=== PATIENT | male | born 1940 | race Caucasian/White ===

== ENCOUNTER → 2020-12-07 09:19 | Outpatient (CLI) | payer MEDICARE, OTHER, SELFPAY ==
[2020-12-07] MEDS: COVID-19 VACC #1, MRNA(MOD) 100 MCG/0.5 ML VIAL IM (09:28)
== END ==
PROVIDERS: Family Provider Internal Medicine; PCP Internal Medicine; Visit Provider Internal Medicine
DX: Z23 Encounter for immunization (principal)
CPT/HCPCS: 0011A; 91301

== ENCOUNTER → 2021-01-04 09:40 | Outpatient (CLI) | payer MEDICARE, OTHER, SELFPAY ==
[2021-01-04] MEDS: COVID-19 VACC #2, MRNA(MOD) 100 MCG/0.5 ML VIAL IM (09:45)
== END ==
PROVIDERS: Family Provider Internal Medicine; PCP Internal Medicine; Visit Provider Internal Medicine
DX: Z23 Encounter for immunization (principal)
CPT/HCPCS: 0012A; 91301

== ENCOUNTER → 2021-07-09 13:11 | Outpatient (CLI) | payer MEDICARE, OTHER, SELFPAY ==
--- NOTE | 2021-07-09 | DI.CT.S_ITS ---
PROCEDURE: CT LUMBAR SPINE WO CON INDICATIONS: Spinal stenosis, lumbar region with neurogenic claudication TECHNIQUE: Noncontrast 3 mm thick sections acquired from the T12 level to the sacrum. Sagittal and coronal reformats were constructed. For radiation dose reduction, the following was used: automated exposure control. COMPARISON: [facility] [place], [place], XR LUMBAR SPINE WITH OLBIQUES PLUS FLEXION EXTENSION, 06/26/2021, 11:05. FINDINGS: Image quality: Excellent. Bones: There is mild L4-L5 anterolisthesis secondary to facet hypertrophy. There is trace L1-L2, L2-L3 and L3-L4 retrolisthesis. No acute vertebral body compression fractures. No suspicious lytic or blastic bony lesions. No pars defects. T12-L1: Loss of disc height. Vacuum disc phenomenon. Mild, diffuse disc bulge. Central/left central disc protrusion. Mild narrowing of the central canal. No neural foraminal narrowing. No neural compression. L1-L2: Loss of disc height. Vacuum disc phenomenon. Mild, diffuse disc bulge. Mild bilateral facet hypertrophy. Mild narrowing of the central canal. No neural foraminal narrowing. No neural compression. L2-L3: Slight loss of disc height. Mild, diffuse disc bulge. Mild to moderate bilateral facet hypertrophy. Mild ligamentum flavum hypertrophy. Mild to moderate narrowing of the central canal. Mild bilateral neural foraminal narrowing. No neural compression L3-L4: Disc height is normal. Mild, diffuse disc bulge. [id number]-mz-hzqlwuey bilateral facet hypertrophy. Moderate ligamentum flavum hypertrophy. Moderate narrowing of the central canal. Mild to moderate bilateral neural foraminal narrowing. No neural compression. L4-L5: Disc height is normal. Mild, diffuse disc bulge. Moderate bilateral facet hypertrophy. Moderate ligamentum flavum hypertrophy. Severe narrowing of the central canal. Moderate bilateral neural foraminal narrowing. L5-S1: Disc height is normal. Mild, diffuse disc bulge. Mild right and severe left facet hypertrophy. No central stenosis. Mild left neural foraminal narrowing. No neural compression. Soft tissues: No retroperitoneal masses or hematomas. Visualized aorta is normal in caliber. IMPRESSION: 1. Multilevel degenerative disc disease. 2. Grade 1 L4-L5 degenerative spondylolisthesis. 3. Severe L4-L5 central canal narrowing with possible compression of the traversing nerve roots of the cauda equina.. 4. No severe neural foraminal narrowing. 5. No vertebral body compression fracture. Dictated by: Sindi Katz MD, PhD on 07/09/2021 at 14:58 Approved by: Sindi Katz MD, PhD on 07/09/2021 at 15:03
== END ==
PROVIDERS: Family Provider Internal Medicine; PCP Internal Medicine; Referring Provider Physical Medicine & Rehabilitation Pain Medicine; Visit Provider Physical Medicine & Rehabilitation Pain Medicine
DX: M48.062 Spinal stenosis, lumbar region with neurogenic claudication (principal); M51.36 Other intervertebral disc degeneration, lumbar region; M51.37 Other intervertebral disc degeneration, lumbosacral region; M43.16 Spondylolisthesis, lumbar region
CPT/HCPCS: 72131

== ENCOUNTER → 2021-12-31 13:54 | Outpatient (CLI) | payer MEDICARE, OTHER, SELFPAY ==
--- NOTE | 2021-12-31 | DI.RAD.S_ITS ---
PROCEDURE: XR CHEST 2V INDICATIONS: atrial fib, cardiomyopathies, dyspnea TECHNIQUE: 2 views of the chest were acquired. COMPARISON: None. FINDINGS: Surgical changes and devices: A right cardiac device is seen. Lungs and pleura: Lungs are clear. No pleural effusions or pneumothorax. Mediastinum: Enlargement the cardiac silhouette. Retrocardiac density, suggesting hiatal hernia. Tortuous aorta. Bones and chest wall: No suspicious bony abnormalities. Soft tissues appear unremarkable. IMPRESSION: No acute cardiopulmonary abnormality. Dictated by: Neymar Salinas M.D. on 12/31/2021 at 15:42 Approved by: Neymar Salinas M.D. on 12/31/2021 at 15:43
== END ==
PROVIDERS: Family Provider Internal Medicine; PCP Internal Medicine; Referring Provider Internal Medicine Cardiovascular Disease; Visit Provider Internal Medicine Cardiovascular Disease
DX: I48.91 Unspecified atrial fibrillation (principal); I42.8 Other cardiomyopathies; R06.00 Dyspnea, unspecified
CPT/HCPCS: 71046

== ENCOUNTER → 2022-02-17 08:36 | Outpatient (CLI) | payer MEDICARE, OTHER, SELFPAY ==
--- NOTE | 2022-02-18 11:55 | P.PCN_ITS ---
Cardiac Stress Test Report Referral & Results Indication: ORTEGA Rest ECG: V PACED RHYTHM WITH NONSPECIFIC ST CHANGES Procedure Note: LEXISCAN NUCLEAR TEST Impression: AFTER SAVANNAH INJ HAD MINIMAL DYSPNEA; NO CHEST DISCOMFORT; BASELINE ECG; V PACED WITH NONSPECIFIC ST ABNORMALITIES; NO SIGNIFICANT ST CHANGES AFTER SAVANNAH INJ COMPARED TO BASELINE; NO AMINOPH NEEDED. MIBI SCAN PENDING; CAREER DEVELOPMENT ASSOCIATE TO REVIEW; YAJAIRA HUTSON Please note: Actual ECG tracings can be found in the PACS system.
--- NOTE | 2022-02-18 20:05 | DI.NM.S_ITS ---
DATE OF SERVICE: 02/17/2022 PROCEDURE: Pharmacological perfusion study. INDICATION: Shortness of breath with underlying AFib, sick sinus syndrome, pacemaker. RADIOPHARMACEUTICAL: 24.1 millicurie technetium-99m Myoview IV was injected at stress and 24.8 millicurie technetium-99m Myoview IV was injected at rest. CARDIAC STRESS: The patient underwent IV Lexiscan perfusion study under the supervision of an attending staff, as per standard protocol. The patient remained hemodynamically stable. Baseline rhythm was ventricular paced rhythm. During stress, no new convincing ischemic changes or arrhythmias seen. The patient had minimal dyspnea. No chest discomfort. Baseline blood pressure 110/80 mmHg. RAW DATA: Increased subdiaphragmatic activity. There was a hot spot near the apex and inferior border of the heart. GATED STUDY: Resting LV ejection fraction 55 and stress LV ejection fraction 60 percent. Resting end-diastolic volume 150 mL. TID ratio 1.06, which is within normal limits. Lung/heart ratio 0.41, which is within normal limits. MYOCARDIAL PERFUSION SCAN: Please note that this patient had stress supine and resting supine images only. No stress prone images. There is a predominantly fixed, small size, severely decreased perfusion of inferoapex, extending into the distal inferolateral wall. No significant reversible ischemia. CONCLUSION: This is an abnormal myocardial perfusion study with predominantly fixed inferoapical and distal inferolateral wall defect. No obvious reversible ischemia. There are no stress prone images. There are no wall motion abnormalities. The patient has a pacemaker. There was increased subdiaphragmatic activity and hot spot near the inferoapical border of the heart. There is a strong possibility of tissue attenuation artifact or Pacemaker-induced perfusion defect. However, one cannot rule out the possibility of nontransmural myocardial infarction. Correlate clinically. In the absence of ischemia and preserved left ventricular function, overall low- risk myocardial perfusion scan. Azeem Dos Santos - Joan/sakshi doc#: [id number]/job#: [id number] dd: 02/18/2022 17:32:00 dt: 02/18/2022 19:47:00 DICTATING MD/COPIES TO: Natividad Chakraborty MD COPIES MNE: FARIHA;
== END ==
PROVIDERS: Family Provider Internal Medicine; PCP Internal Medicine; Referring Provider Internal Medicine Cardiovascular Disease; Visit Provider Internal Medicine Cardiovascular Disease
DX: R06.02 Shortness of breath (principal); I48.91 Unspecified atrial fibrillation; R94.39 Abnormal result of other cardiovascular function study; R06.00 Dyspnea, unspecified; I49.5 Sick sinus syndrome; I42.8 Other cardiomyopathies; Z95.0 Presence of cardiac pacemaker
CPT/HCPCS: 78452; 93017; A9502; J2785

== ENCOUNTER → 2023-02-04 10:39 | Outpatient (CLI) | payer MEDICARE, OTHER, SELFPAY ==
--- NOTE | 2023-02-04 | DI.RAD.S_ITS ---
PROCEDURE: FL BARIUM SWALLOW INDICATIONS: Gastro-esophageal reflux disease COMPARISON: None. FINDINGS: Function: The esophagus is patulous with low amplitude peristalsis. Spontaneous gastroesophageal reflux is noted with supine positioning into the upper esophagus. There is normal transit of a calibrated barium tablet through the esophagus into the stomach. Morphology: Moderate to large hiatal hernia. Single contrast views show no esophageal strictures, extrinsic mass effects, or diverticula. IMPRESSION: 1. Moderate to large hiatal hernia. 2. Spontaneous gastroesophageal reflux. 3. Patulous esophagus with relatively amplitude peristalsis. No focal narrowing is seen to suggest achalasia. Approved by: Frank Hurt M.D. on 02/04/2023 at 13:46
== END ==
PROVIDERS: Family Provider Internal Medicine; PCP Internal Medicine; Referring Provider Internal Medicine Gastroenterology; Visit Provider Internal Medicine Gastroenterology
DX: K21.9 Gastro-esophageal reflux disease without esophagitis (principal); K44.9 Diaphragmatic hernia without obstruction or gangrene; R11.10 Vomiting, unspecified; Z91.89 Other specified personal risk factors, not elsewhere classified
CPT/HCPCS: 74220

== ENCOUNTER → 2024-01-06 10:54 | Outpatient (CLI) | payer MEDICARE, OTHER, SELFPAY ==
[2024-01-06 12:18] LABS: Hemoglobin A1C% w Est Avg Glu 6.5 % (4.0-6.0)
[2024-01-06 12:44] LABS: Alanine Aminotransferase 23 IU/L (<50); Albumin 4.1 g/dL (3.5-5.0); Albumin Globulin Ratio 1.5 (1.0-2.8); Alkaline Phosphatase 73 U/L (38-126); Aspartate Aminotransferase 27 IU/L (17-59); BUN Creatinine Ratio 22.1 (6-22); Bilirubin Total 0.9 mg/dL (0.2-1.3); Blood Urea Nitrogen 25 mg/dL (9-20); Calcium 9.9 mg/dL (8.4-10.2); Carbon Dioxide 28 mmol/L (22-32); Chloride 104 mmol/L (98-107); Estimated Glomerular Filt Rate > 60 mL/min (>60); Globulin 2.8 g/dL (1.7-4.1); Glucose 73 mg/dL (80-110); HEMOLYSIS < 15 (0-50); Potassium 4.8 mmol/L (3.4-5.1); Sodium 138 mmol/L (137-145); Total Protein 6.9 g/dL (6.3-8.2)
== END ==
PROVIDERS: Family Provider Internal Medicine; PCP Family Medicine; Referring Provider Family Medicine; Visit Provider Family Medicine
DX: E11.42 Type 2 diabetes mellitus with diabetic polyneuropathy (principal); I48.19 Other persistent atrial fibrillation; I10 Essential (primary) hypertension; E78.5 Hyperlipidemia, unspecified
CPT/HCPCS: 36415; 80053; 83036

== ENCOUNTER → 2024-03-14 11:04 | Outpatient (CLI) | payer MEDICARE, OTHER, SELFPAY ==
[2024-03-14 12:28] LABS: Hemoglobin A1C% w Est Avg Glu 7.1 % (4.0-6.0)
[2024-03-14 12:29] LABS: BUN Creatinine Ratio 25.3 (6-22); Blood Urea Nitrogen 24 mg/dL (9-20); Calcium 9.5 mg/dL (8.4-10.2); Carbon Dioxide 29 mmol/L (22-32); Chloride 105 mmol/L (98-107); Estimated Glomerular Filt Rate > 60 mL/min (>60); Glucose 109 mg/dL (80-110); HEMOLYSIS 15 (0-50); Potassium 4.3 mmol/L (3.4-5.1); Sodium 137 mmol/L (137-145)
== END ==
PROVIDERS: Family Provider Internal Medicine; PCP Family Medicine; Referring Provider Family Medicine; Visit Provider Family Medicine
DX: E11.42 Type 2 diabetes mellitus with diabetic polyneuropathy (principal); I48.19 Other persistent atrial fibrillation
CPT/HCPCS: 36415; 80048; 83036

== ENCOUNTER → 2024-09-14 11:28 | Outpatient (CLI) | payer MEDICARE, OTHER, SELFPAY ==
[2024-09-14 13:03] LABS: Hemoglobin A1C% w Est Avg Glu 6.4 % (4.0-6.0)
[2024-09-14 13:13] LABS: Alanine Aminotransferase 23 IU/L (<50); Albumin 4.2 g/dL (3.5-5.0); Albumin Globulin Ratio 1.6 (1.0-2.8); Alkaline Phosphatase 74 U/L (38-126); Aspartate Aminotransferase 27 IU/L (17-59); Bilirubin Total 0.9 mg/dL (0.2-1.3); Blood Urea Nitrogen 20 mg/dL (9-20); Calcium 9.9 mg/dL (8.4-10.2); Carbon Dioxide 26 mmol/L (22-32); Chloride 103 mmol/L (98-107); Cholesterol 135 mg/dL (140-199); Estimated Glomerular Filt Rate > 60 mL/min (>60); Globulin 2.7 g/dL (1.7-4.1); Glucose 119 mg/dL (80-110); HDL Cholesterol 54 mg/dL (40-60); HEMOLYSIS < 15 (0-50); LDL Cholesterol Calculated 68 mg/dL (<100); Potassium 4.2 mmol/L (3.4-5.1); Sodium 136 mmol/L (137-145); Total Protein 6.9 g/dL (6.3-8.2); Triglycerides 67 mg/dL (35-150)
== END ==
PROVIDERS: Family Provider Internal Medicine; PCP Family Medicine; Referring Provider Family Medicine; Visit Provider Family Medicine
DX: Z00.00 Encounter for general adult medical examination without abnormal findings (principal); E11.42 Type 2 diabetes mellitus with diabetic polyneuropathy; E78.5 Hyperlipidemia, unspecified; I48.0 Paroxysmal atrial fibrillation; I50.22 Chronic systolic (congestive) heart failure; I11.0 Hypertensive heart disease with heart failure
CPT/HCPCS: 36415; 80053; 80061; 83036

== ENCOUNTER → 2025-02-21 09:46 | Outpatient (CLI) | payer MEDICARE, OTHER, SELFPAY ==
[2025-02-21 10:20] LABS: Hemoglobin A1C% w Est Avg Glu 6.3 % (4.0-6.0)
[2025-02-21 10:43] LABS: BUN Creatinine Ratio 22.9 (6-22); Blood Urea Nitrogen 22 mg/dL (9-20); Calcium 9.7 mg/dL (8.4-10.2); Carbon Dioxide 29 mmol/L (22-32); Chloride 101 mmol/L (98-107); Estimated Glomerular Filt Rate > 60 mL/min (>60); Glucose 111 mg/dL (80-110); HEMOLYSIS 27 (0-50); Potassium 4.5 mmol/L (3.4-5.1); Sodium 136 mmol/L (137-145)
== END ==
PROVIDERS: Family Provider Internal Medicine; PCP Family Medicine; Referring Provider Family Medicine; Visit Provider Family Medicine
DX: E11.42 Type 2 diabetes mellitus with diabetic polyneuropathy (principal); K44.9 Diaphragmatic hernia without obstruction or gangrene; R12 Heartburn
CPT/HCPCS: 36415; 80048; 83036

== ENCOUNTER → 2025-09-15 09:32 | Outpatient (CLI) | payer MEDICARE, OTHER, SELFPAY ==
[2025-09-15 11:16] LABS: Hemoglobin A1C% w Est Avg Glu 6.4 % (4.0-6.0)
[2025-09-15 11:43] LABS: Alanine Aminotransferase 21 IU/L (<50); Albumin 4.1 g/dL (3.5-5.0); Albumin Globulin Ratio 1.5 (1.0-2.8); Alkaline Phosphatase 69 U/L (38-126); Blood Urea Nitrogen 23 mg/dL (9-20); Calcium 9.6 mg/dL (8.4-10.2); Carbon Dioxide 30 mmol/L (22-32); Chloride 101 mmol/L (98-107); Cholesterol 134 mg/dL (140-199); Estimated Glomerular Filt Rate > 60 mL/min (>60); Globulin 2.8 g/dL (1.7-4.1); Glucose 109 mg/dL (70-99); HDL Cholesterol 56 mg/dL (40-60); HEMOLYSIS < 15 (0-50); Potassium 4.3 mmol/L (3.4-5.1); Sodium 136 mmol/L (137-145); Total Protein 6.9 g/dL (6.3-8.2); Triglycerides 70 mg/dL (35-150)
== END ==
PROVIDERS: Family Provider Internal Medicine; PCP Family Medicine; Referring Provider Family Medicine; Visit Provider Family Medicine
DX: E11.42 Type 2 diabetes mellitus with diabetic polyneuropathy (principal); I11.0 Hypertensive heart disease with heart failure; I50.9 Heart failure, unspecified; I48.91 Unspecified atrial fibrillation
CPT/HCPCS: 36415; 80053; 80061; 83036